=== PATIENT | female | born 1950 | race Caucasian/White ===

== ENCOUNTER 2017-07-07 21:48 | Emergency (ER) | payer MEDICARE, OTHER ==
[~2017-07-07] VITALS: Ht 162.6 cm; Wt 54.4 kg
[2017-07-07 22:15] VITALS: BP 111/68
[2017-07-07] MEDS ORDERED: ZITHROMAX250 MG ORAL (22:36)
[2017-07-07] MEDS ORDERED: IBUPROFEN600 MG ORAL (22:36)
[2017-07-07 22:50] VITALS: BP 111/68
--- NOTE | 2017-07-07 22:51 | Emergency Room Report ---
History of Present Illness General Chief Complaint: Upper Respiratory Illness Source: Patient Present Illness HPI 67-year-old female with one week of intermittent body aches, headache, productive cough with green sputum. No history of asthma, COPD or bronchitis. Does not take any other medications. Patient did not get influenza vaccine this year. No sick contacts at home. Took Tylenol and Mucinex earlier however had episode of diarrhea and Mucinex. Otherwise denies abdominal pain, vomiting. Endorses temperature of 103 at home earlier today. Allergies: Coded Allergies: METRONIDAZOLE (Verified Allergy, Unknown, 07/07/17) SULFA (SULFONAMIDE ANTIBIOTICS) (Verified Allergy, Unknown, 07/07/17) Patient History Past Medical History: none Past Surgical History: none Pertinent Family History: none Social History: Denies: smoking, alcohol use, drug use Last Menstrual Period: ukn Now: No Immunizations: UTD Reviewed Nursing Documentation: PMH: Agreed, PSxH: Agreed Nursing Documentation-PMH Past Medical History: No Stated History Review of Systems All Other Systems: negative except mentioned in HPI Physical Exam Vital Signs Date Time Temp Pulse Resp B/P (MAP) Pulse Ox O2 Delivery O2 Flow Rate FiO2 07/07/17 22:04 99.7 90 18 111/68 96 Room Air 07/07/17 22:15 96 Sp02 EP Interpretation: reviewed, normal General Appearance: normal inspection, well appearing, no apparent distress, alert, GCS 15, non-toxic Head: normocephalic, atraumatic Eyes: bilateral eye PERRL, bilateral eye EOMI ENT: normal ENT inspection, hearing grossly normal, normal pharynx, no angioedema, normal voice, TMs + canals normal, uvula midline, moist mucus membranes Neck: normal inspection, full range of motion, supple, thyroid normal, no meningismus, no bony tend Respiratory: normal inspection, lungs clear, normal breath sounds, no rhonchi, no respiratory distress, no retraction, no accessory muscle use, no wheezing, speaking full sentences Cardiovascular #1: regular rate, rhythm, no edema, no JVD, normal capillary refill Gastrointestinal: normal inspection, normal bowel sounds, non tender, soft, no mass, no peritonitis, non-distended, no guarding, no hernia, no pulsatile mass Genitourinary: no CVA tenderness Musculoskeletal: normal inspection, back normal, normal range of motion, no calf tenderness, pelvis stable, Yogi's Sign negative Neurologic: normal inspection, alert, oriented x3, responsive, demand inspector III-XII nml as tested, motor strength/tone normal, cerebellar normal, normal gait, speech normal Psychiatric: normal inspection, judgement/insight normal, mood/affect normal, no suicidal/homicidal ideation, no delusions Skin: normal inspection, normal color, no rash Lymphatic: normal inspection, no adenopathy Medical Decision Making Diagnostic Impression: Primary Impression: Community acquired pneumonia Qualified Codes: J18.9 - Pneumonia, unspecified organism Additional Impression: Flu-like symptoms ER Course Patient with body aches, fever of 103 at home and green sputum productive cough concerning for communion acquired pneumonia Will treat empirically with Z-Real Patient also possibly has influenza, over this is less likely Discuss that Tamiflu not an option given duration of symptoms over 2 days prescribe Motrin as needed for myalgias ER course: Patient has remained stable during ED stay. Disposition: Patient is to be discharged to home. Prescriptions given are z-pack, motrin Patient is instructed to follow up with their primary care doctor within 5 days. Strict return precautions discussed with patient such as fever, chills, worsening/severe pain, nausea, vomiting, which may indicate severe illness. Patient verbalizes understanding and agrees with plan. Please note that this Emergency Department Report was dictated using [employer] technology software, occasionally this can lead to erroneous entry secondary to interpretation by the dictation equipment Last Vital Signs Date Time Temp Pulse Resp B/P (MAP) Pulse Ox O2 Delivery O2 Flow Rate FiO2 07/07/17 22:15 90 18 Room Air 96 07/07/17 22:15 99.7 111/68 96 Status: improved Disposition: HOME, SELF-CARE Condition: Improved Scripts Ibuprofen* (MOTRIN*) 600 Mg Tablet 600 MG ORAL THREE TIMES A DAY for body aches, pain for 7 Days, #30 TAB 0 Refills Prov: GARETT HICKS M.D. 07/07/17 Azithromycin* (ZITHROMAX*) 250 Mg Tablet 250 MG ORAL DAILY for 5 Days, #6 TAB 0 Refills Take two tables once daily for 1 day, then one tablet once daily for 4 days. Prov: GARETT HICKS M.D. 07/07/17 Referrals: NOT CHOSEN IPA/,REFERRING (PCP) Patient Instructions: Influenza, Adult, [id number], Community-Acquired Pneumonia, Adult, [id number] Additional Instructions: Take Z-Real starting tomorrow if no improvement by tomorrow night Use ibuprofen every 8 hours as needed for bodyaches, headache Drink plenty of fluids Follow up with your doctor in 2-3 days GARETT HICKS M.D. Jul 07, 2017 22:51
== END 2017-07-07 22:50 | disposition home or self-care (01) ==
LOC: EMR 22:33
DX: J18.9 Pneumonia, unspecified organism (principal); Z88.2 Allergy status to sulfonamides; Z88.8 Allergy status to other drugs, medicaments and biological substances
CPT/HCPCS: 99284